=== PATIENT | female | born 1940 | race Caucasian/White ===

== ENCOUNTER 2021-05-29 15:19 | Emergency (ER) | payer OTHER ==
[~2021-05-29] VITALS: Ht 170.2 cm; Wt 90.7 kg
[2021-05-29 15:25] VITALS: BP_SYST 167
[2021-05-29] MEDS ORDERED: HYDROcodone/ACETAMIN 5-325 MG TAB (NORCO/ VICODIN) PO ONE (16:15)
[2021-05-29] MEDS ORDERED: ACET500P25 PO (17:57)
[2021-05-29] MEDS ORDERED: IBUP-1968 PO (17:58)
[2021-05-29 18:37] VITALS: BP_SYST 150
== END 2021-05-29 18:37 | disposition home or self-care (01) ==
LOC: SED 15:19
DX: M25.561 Pain in right knee (principal); Z79.899 Other long term (current) drug therapy; X50.1XXA Overexertion from prolonged static or awkward postures, initial encounter; Y93.89 Activity, other specified; Y92.89 Other specified places as the place of occurrence of the external cause; Y99.8 Other external cause status
CPT/HCPCS: 72170-TC; 73502; 73564; 99284